=== PATIENT | male | born 1970 | race Hispanic/Latino ===

== ENCOUNTER → 2017-10-31 | Outpatient (CLI) | payer OTHER ==
--- NOTE | 2017-11-03 08:05 | Diagnostic Imaging Report ---
TECHNIQUE: Magnetic resonance imaging of the LEFT SHOULDER was performed WITHOUT injected contrast. COMPARISON: None available. HISTORY: Pain FINDINGS: MUSCLES AND TENDONS: Rotator Cuff: Tendons: Full thickness tear of the anterior supraspinatus from the humeral insertion with posterior propagation is a partial-thickness articular sided tear into the anterior infraspinatus. Tendon retraction measuring maximally approximately 1.5 cm. Full-thickness tearing of the superior fibers of the subscapularis. Muscles: No focal muscle atrophy. Biceps Tendon: Tendinopathy of the intra-articular portion. GLENOHUMERAL JOINT: Glenoid Labrum: Superior labral tearing. Articular Cartilage: No focal defect. AC JOINT AND ACROMION: Mild hypertrophic degenerative changes of the acromioclavicular joint. Subacromial spur. BONE: No acute fracture. SOFT TISSUES: Subacromial subdeltoid bursal fluid. IMPRESSION: Full-thickness tear of the supraspinatus and superior subscapularis as above. No atrophy. Intra-articular long head biceps tendinopathy. Subacromial spurring. Signed by: Dr. Joe Cruz M.D. on 11/03/2017 8:01 AM
== END ==
LOC: MRI 16:37
PROVIDERS: ATTEND Family Medicine
DX: S46.012D Strain of muscle(s) and tendon(s) of the rotator cuff of left shoulder, subsequent encounter (principal)